=== PATIENT | female | born 1955 | race Caucasian/White ===

== ENCOUNTER 2020-06-12 16:36 | Emergency (ER) | payer BC ==
[2020-06-12] MEDS ORDERED: Sodium Chloride 0.9% 10 ML Syringe FLUSH PRN (17:18)
[2020-06-12] MEDS ORDERED: Ondansetron 4 MG/2 ML SDV IVPUSH ONE (17:20)
[2020-06-12] MEDS ORDERED: Lactated Ringers 1,000 ML IV SCH (17:30)
--- NOTE | 2020-06-12 17:48 | EDM.PDOC ---
ED HPI GENERAL MEDICAL PROBLEM - General Chief Complaint: Gastrointestinal Problem Stated Complaint: VOMITING Time Seen by Provider: 06/12/20 16:52 Source of Information: Reports: Patient History Limitations: Reports: No Limitations - History of Present Illness INITIAL COMMENTS - FREE TEXT/NARRATIVE: Patient is a 65-year-old female who presents to the emergency department with complaints of vomiting and intermittent abdominal pain for the last 5 days. Symptoms began around 2:00 last Monday with lower sternal chest pain that radiated down into her epigastrium. She states she took Tums which did help with the symptoms. On Monday, she developed 3 episodes of vomiting as well as continued epigastric pain. Symptoms have improved since that time, however have been present to a certain degree. States that she had one episode of emesis on Monday, did not vomit on Monday or Monday. Last night she had 1 emesis, and then again this morning she had 1 emesis. She has not eaten solid food since Monday. She has been drinking fluids well. She states that beginning with last night, her emesis has become dark brown to black in color. This morning she vomited around 9 AM and states it was dark black. She also vomited up 2 stones which she was able to capture and bring to the emergency department. Prior to coming to the ER, patient was seen at the [place] [facility]. Blood work was done and they attempted to do an ultrasound of her gallbladder, however the technology teacher was unable to visualize the gallbladder. The PA in the walk-in clinic consulted the surgeon on-call, Dr. Caro, and he recommended that she come to the ER to have a CT scan completed. She states that since her emesis this morning, her sternal and epigastric pain has resolved. She has had no further episodes of nausea or vomiting. She states that she did have a small bowel movement this morning which was normal in color. Denies any black stools. Patient does still have her gallbladder and her appendix. Pt verbalized that she has never had IV contrast but has a hx of a severe allergy to topical iodine. States she had to be hospitalized due to a reaction caused by topical iodine. Generalized Pain Score (Numeric/FACES): 7 - Related Data Allergies Allergy/AdvReac Type Severity Reaction Status Date / Time iodine Allergy Severe Rash Verified 06/12/20 16:56 Home Meds: Home Meds . [No Known Home Meds] 06/12/20 [History] Past Medical History HEENT History: Reports: Cataract Cardiovascular History: Reports: Hypertension - Past Surgical History HEENT Surgical History: Reports: Other (See Below) Other HEENT Surgeries/Procedures: partial lower dentures Musculoskeletal Surgical History: Reports: Other (See Below) Other Musculoskeletal Surgeries/Procedures:: bad knees Social & Family History - Tobacco Use Smoking Status *Q: Never Smoker - Caffeine Use Caffeine Use: Reports: Coffee, Tea - Recreational Drug Use Recreational Drug Use: No ED ROS GENERAL - Review of Systems Review Of Systems: See Below Constitutional: Reports: Decreased Appetite. Denies: Fever, Chills HEENT: Reports: No Symptoms Respiratory: Reports: No Symptoms. Denies: Shortness of Breath, Cough Cardiovascular: Reports: Chest Pain (Low sternal). Denies: Palpitations Endocrine: Reports: No Symptoms GI/Abdominal: Reports: Abdominal Pain, Nausea, Vomiting. Denies: Black Stool, Diarrhea, Melena : Reports: No Symptoms. Denies: Dysuria, Flank Pain Musculoskeletal: Reports: No Symptoms Skin: Reports: No Symptoms Neurological: Reports: No Symptoms. Denies: Confusion, Dizziness, Headache Psychiatric: Reports: No Symptoms Hematologic/Lymphatic: Reports: No Symptoms Immunologic: Reports: No Symptoms ED EXAM, GI/ABD - Physical Exam Exam: See Below Exam Limited By: No Limitations General Appearance: Alert, WD/WN, No Apparent Distress Respiratory/Chest: No Respiratory Distress, Lungs Clear, Normal Breath Sounds, No Accessory Muscle Use, Chest Non-Tender Cardiovascular: Normal Peripheral Pulses, Regular Rate, Rhythm, No Edema, No Gallop, No JVD, No Murmur, No Rub GI/Abdominal Exam: Normal Bowel Sounds, Soft, Non-Tender, No Organomegaly, No Distention, No Abnormal Bruit, No Mass, Pelvis Stable Neurological: Alert, Oriented, CN II-XII Intact, Normal Cognition, Normal Gait, Normal Reflexes, No Motor/Sensory Deficits Psychiatric: Normal Affect, Normal Mood Skin Exam: Warm, Dry, Intact, Normal Color, No Rash EKG INTERPRETATION EKG Date: 06/12/20 Time: 18:12 Rhythm: NSR Rate (Beats/Min): 94 [place]: Normal P-Wave: Present QRS: Normal ST-T: Normal QT: Prolonged (borderline) Comparison: NA - No Prior EKG Course - Vital Signs Last Recorded V/S: Last Vital Signs Temp 97.2 F 06/13/20 02:49 Pulse 98 06/13/20 02:49 Resp 16 06/13/20 02:49 BP 157/85 H 06/13/20 02:49 Pulse Ox 95 06/13/20 02:49 - Orders/Labs/Meds Labs: Laboratory Tests 06/12/20 06/12/20 06/12/20 Range/Units 18:10 18:10 18:10 WBC 13.14 H (3.98-10.04) K/mm3 RBC 5.33 H (3.98-5.22) M/mm3 Hgb 16.2 H (11.2-15.7) gm/dl Hct 48.4 H (34.1-44.9) % MCV 90.8 (79.4-94.8) fl MCH 30.4 (25.6-32.2) pg MCHC 33.5 (32.2-35.5) g/dl RDW Std Deviation 43.1 (36.4-46.3) fL Plt Count 225 (182-369) K/mm3 MPV 11.3 (9.4-12.3) fl Neut % (Auto) 70.9 (34.0-71.1) % Lymph % (Auto) 17.9 L (19.3-51.7) % [place] % (Auto) 10.2 (4.7-12.5) % Eos % (Auto) 0.5 L (0.7-5.8) Baso % (Auto) 0.2 (0.1-1.2) % Neut # (Auto) 9.32 H (1.56-6.13) K/mm3 Lymph # (Auto) 2.35 (1.18-3.74) K/mm3 [place] # (Auto) 1.34 H (0.24-0.36) K/mm3 Eos # (Auto) 0.07 (0.04-0.36) K/mm3 Baso # (Auto) 0.02 (0.01-0.08) K/mm3 Manual Slide Review Normal smear Sodium 137 (136-145) mEq/L Potassium 3.1 L (3.5-5.1) mEq/L Chloride 94 L (98-107) mEq/L Carbon Dioxide 33 H (21-32) mEq/L Anion Gap 13.1 (5-15) BUN 24 H (7-18) mg/dL Creatinine 1.2 H (0.55-1.02) mg/dL Est Cr Clr Drug Dosing 37.46 mL/min Estimated GFR (MDRD) 45 (>60) mL/min BUN/Creatinine Ratio 20.0 H (14-18) Glucose 108 (80-115) mg/dL Calcium 9.4 (8.5-10.1) mg/dL Total Bilirubin 0.9 (0.2-1.0) mg/dL AST 19 (15-37) U/L ALT 19 (14-59) U/L Alkaline Phosphatase 68 (46-116) U/L Troponin I < 0.017 (0.00-0.056) ng/mL C-Reactive Protein 10.2 H* (<1.0) mg/dL Total Protein 7.1 (6.4-8.2) g/dl Albumin 3.0 L (3.4-5.0) g/dl Globulin 4.1 gm/dL Albumin/Globulin Ratio 0.7 L (1-2) Amylase 62 (25-115) U/L Lipase 491 H (73-393) U/L Urine Color (Yellow) Urine Appearance (Clear) Urine pH (5.0-8.0) Ur Specific [place] (1.005-1.030) Urine Protein (Negative) Urine Glucose (UA) (Negative) Urine Ketones (Negative) Urine Occult Blood (Negative) Urine Nitrite (Negative) Urine Bilirubin (Negative) Urine Urobilinogen (0.2-1.0) Ur Leukocyte Esterase (Negative) COVID-19 (ORI) (NEGATIVE) 06/12/20 06/12/20 Range/Units 18:46 21:04 WBC (3.98-10.04) K/mm3 RBC (3.98-5.22) M/mm3 Hgb (11.2-15.7) gm/dl Hct (34.1-44.9) % MCV (79.4-94.8) fl MCH (25.6-32.2) pg MCHC (32.2-35.5) g/dl RDW Std Deviation (36.4-46.3) fL Plt Count (182-369) K/mm3 MPV (9.4-12.3) fl Neut % (Auto) (34.0-71.1) % Lymph % (Auto) (19.3-51.7) % [place] % (Auto) (4.7-12.5) % Eos % (Auto) (0.7-5.8) Baso % (Auto) (0.1-1.2) % Neut # (Auto) (1.56-6.13) K/mm3 Lymph # (Auto) (1.18-3.74) K/mm3 [place] # (Auto) (0.24-0.36) K/mm3 Eos # (Auto) (0.04-0.36) K/mm3 Baso # (Auto) (0.01-0.08) K/mm3 Manual Slide Review Sodium (136-145) mEq/L Potassium (3.5-5.1) mEq/L Chloride (98-107) mEq/L Carbon Dioxide (21-32) mEq/L Anion Gap (5-15) BUN (7-18) mg/dL Creatinine (0.55-1.02) mg/dL Est Cr Clr Drug Dosing mL/min Estimated GFR (MDRD) (>60) mL/min BUN/Creatinine Ratio (14-18) Glucose (80-115) mg/dL Calcium (8.5-10.1) mg/dL Total Bilirubin (0.2-1.0) mg/dL AST (15-37) U/L ALT (14-59) U/L Alkaline Phosphatase (46-116) U/L Troponin I (0.00-0.056) ng/mL C-Reactive Protein (<1.0) mg/dL Total Protein (6.4-8.2) g/dl Albumin (3.4-5.0) g/dl Globulin gm/dL Albumin/Globulin Ratio (1-2) Amylase (25-115) U/L Lipase (73-393) U/L Urine Color Yellow (Yellow) Urine Appearance Clear (Clear) Urine pH 6.0 (5.0-8.0) Ur Specific [place] > or = 1.030 (1.005-1.030) Urine Protein Negative (Negative) Urine Glucose (UA) Negative (Negative) Urine Ketones 2+ H (Negative) Urine Occult Blood Negative (Negative) Urine Nitrite Negative (Negative) Urine Bilirubin 1+ H (Negative) Urine Urobilinogen 1.0 (0.2-1.0) Ur Leukocyte Esterase Negative (Negative) COVID-19 (ORI) Negative (NEGATIVE) Meds: Medications Discontinued Medications Generic Name Dose Route Start Last Admin Trade Name Freq PRN Reason Stop Dose Admin Diatrizoate Meglum/Diatrizoate Sod 120 ml 06/12/20 19:22 06/12/20 20:02 Gastrografin 37% PO 06/12/20 19:23 120 ml ONETIME ONE Administration Diphenhydramine HCl 50 mg 06/12/20 17:51 06/12/20 18:39 Benadryl IVPUSH 06/12/20 17:52 Not Given ONETIME ONE Lactated Ringer's 1,000 mls @ 999 mls/hr 06/12/20 17:30 06/12/20 18:44 Ringers, Lactated IV 999 mls/hr ASDIRECTED NIKKI Administration Potassium Chloride 10 meq/ 100 mls @ 100 mls/hr 06/12/20 21:15 06/13/20 02:24 Premix IV 06/15/20 22:14 100 mls/hr ASDIRECTED NIKKI Administration Sodium Chloride 1,000 mls @ 75 mls/hr 06/12/20 21:15 06/12/20 21:21 Normal Saline IV 75 mls/hr ASDIRECTED NIKKI Administration Ceftriaxone Sodium 2 gm/ 100 mls @ 200 mls/hr 06/12/20 21:45 06/12/20 21:57 Sodium Chloride IV 200 mls/hr Q24H NIKKI Administration Metronidazole 500 mg/ Premix 100 mls @ 100 mls/hr 06/12/20 21:33 06/12/20 21:54 IV 06/12/20 22:32 100 mls/hr ONETIME ONE Administration Lorazepam 0.5 mg 06/12/20 21:59 06/12/20 22:09 Ativan IVPUSH 06/12/20 22:00 0.5 mg ONETIME ONE Administration Ondansetron HCl 4 mg 06/12/20 17:20 06/12/20 18:44 Zofran IVPUSH 06/12/20 17:21 4 mg ONETIME ONE Administration Ondansetron HCl 4 mg 06/13/20 04:46 06/13/20 04:51 Zofran IVPUSH 06/13/20 04:47 4 mg ONETIME ONE Administration Sodium Chloride 10 ml 06/12/20 17:18 06/12/20 18:44 Saline Flush FLUSH 10 ml ASDIRECTED PRN Administration Keep Vein Open - Re-Assessments/Exams Free Text/Narrative Re-Assessment/Exam: Patient is a 65-year-old female who presents with complaints of a one-week history of abdominal pain with intermittent vomiting. She was seen at the [place] walk[facility]in [facility] prior to coming the ER. They attempted to do an ultrasound of her gallbladder, however were unable to locate the gallbladder. Lab work was completed at [place] as well. She states she is feeling much better at this time. She has not vomited since 9:00 this morning and the pain has resolved for the most part. We will repeat lab work including a CBC, CMP, CRP, lipase, amylase, troponin, urinalysis. Ordered a CT scan of the abdomen and pelvis with oral contrast only. Patient states that she had a severe reaction to topical iodine which required hospitalization, therefore we are going to avoid IV contrast at this time. 06/12/202114 Hematology was significant for WBC elevated at 13.14, hemoglobin 16.2, potassium 3.1, chloride 94, CO2 33, BUN 24, creatinine 1.2, CRP 10.2, lipase 491. Urinalysis was negative. I have ordered KCl 10 mEq IV x4 bags as well as NS at 100 mils per hour. 06/12/20 22:00 CT scan of the abdomen pelvis results as follows 1. Dilated small bowel loops with transition point within the right lower abdomen which is most likely due to adhesions. Slight areas of increased mesenteric densities are also noted in this area. 2. Free fluid within the pelvis most likely relating to small bowel obstruction as reactive fluid. 3. Intrahepatic and extrahepatic biliary air most likely related to previous cholecystectomy and possible intervention of the sphincter of Oddi. 4. No other acute abnormalities is appreciated. Verified with patient that she has never had a cholecystectomy. Called and spoke with the surgeon on-call, Dr. Caro. He feels the patient may have a gallstone ileus, however due to her BMI of 55 she would not be a surgical candidate for [place]. He recommended that I contact [place] to discuss transfer. Called [facility] in [place] and spoke with the on-call surgeon, Dr. Calzada. After review of the case, he is concerned that she could have an intrahepatic gallbladder which would require a liver specialist and not be a procedure that they would build to complete at their facility. He recommended I contact [facility] is there a level 1 trauma center and have specialist available. Called [facility] and spoke with Dr. Flores. She reviewed the CT images and is concerned that the patient could have a fistula from her gallbladder to her duodenum. She has accepted the patient for transfer to [facility]. Recommend the patient remain n.p.o. She also recommended that we give a dose of Rocephin and Flagyl prior to transfer. Patient will go by [facility] [employer] fixed wing pending weather clearance. 06/12/20 22:56 [facility] [employer] updated that they are unable to fly at this time due to weather in [place]. They are estimating it may be up to an additional 2 to 3 hours. Patient remains hemodynamically stable. She is resting comfortably. Case discussed with Dr. Donis MD. He will assume care and disposition of patient due to end of shift. Departure - Departure Time of Disposition: 22:56 Disposition: DC/Tfer to Acute Hospital 02 Condition: Good Clinical Impression: Abdominal pain - Discharge Information Referrals: PCP,None [Primary Care Provider] - Forms: ED Department Discharge Sepsis Event Note (ED) - Evaluation Sepsis Screening Result: No Definite Risk
[2020-06-12] MEDS ORDERED: diphenhydrAMINE 50 MG/ML SDV IVPUSH ONE (17:51)
--- NOTE | 2020-06-12 18:13 | CR ---
Chest: 2 views of the chest were obtained. Comparison: No previous chest imaging. Minimal atelectasis is noted within the left lung base. Heart size is normal. Tortuous thoracic aorta is seen. Slight degenerative change is noted within the spine. Impression: 1. Slight atelectasis within the left base. 2. Nothing acute is appreciated. Diagnostic code #2 This report was dictated in MDT
[2020-06-12] MEDS ORDERED: Diatrizoate Meglumine/Diatrizoate Sodium 37% 120 ML Bottle PO ONE (19:22)
--- NOTE | 2020-06-12 20:30 | CT ---
CT abdomen and pelvis Technique: Multiple axial sections were obtained from above the dome of the diaphragm inferiorly through the pubic symphysis. Intravenous contrast not utilized. Oral contrast has been given. Findings: Intrahepatic biliary air is noted as well as extrahepatic biliary air. Visualized lung bases show nothing acute. No focal abnormality is appreciated within the liver. Several small low density finding seen within the spleen which which I believe are incidental. Adrenal glands show no nodule. Kidneys show no hydronephrosis or abnormal calcifications. Dilated jejunal and proximal ileal loops are noted. Transition point appears to be within the right lower abdomen with mild increase adjacent mesenteric densities. Findings are most likely due to adhesions. No other etiology is appreciated for the obstruction. Small amount of fluid is seen within the pelvis most likely reactive from the small bowel obstruction. No pelvic mass or adenopathy is seen. Appendix is not visualized. Aorta shows no aneurysm. No retroperitoneal adenopathy is seen. Bone window settings were reviewed which shows scattered degenerative change within the spine. Very minimal umbilical hernia is noted. Impression: 1. Dilated small bowel loops with transition point within the right lower abdomen which is most likely due to adhesions. Slight areas of increased mesenteric density are noted in this area. 2. Free fluid within the pelvis most likely relating to the small bowel obstruction as reactive fluid. 3. Intrahepatic and extrahepatic biliary air most likely relating to previous cholecystectomy and possible intervention of the sphincter of Oddi. 4. No other acute abnormality is appreciated. Diagnostic code #5 This report was dictated in MDT
[2020-06-12] MEDS ORDERED: Sodium Chloride 0.9% 1,000 ML IV SCH (21:15)
[2020-06-12] MEDS: Potassium Chloride 10 MEQ in Premix Bag 1 BAG IV SCH ×3 (21:22→23:59)
[2020-06-12] MEDS ORDERED: metroNIDAZOLE/Normal Saline 500 MG in Premix Bag 1 BAG IV ONE (21:33)
[2020-06-12] MEDS ORDERED: cefTRIAXone 2 GM in Sodium Chloride 0.9% 100 ML IV SCH (21:45)
[2020-06-12] MEDS ORDERED: LORazepam 2 MG/ML SDV IVPUSH ONE (21:59)
[2020-06-13] MEDS: Potassium Chloride 10 MEQ in Premix Bag 1 BAG IV SCH (02:24)
[2020-06-13] MEDS ORDERED: Ondansetron 4 MG/2 ML SDV IVPUSH ONE (04:46)
== END 2020-06-13 05:06 ==
LOC: JD.ED 16:36
DX: R10.13 Epigastric pain (principal); I10 Essential (primary) hypertension; Z88.8 Allergy status to other drugs, medicaments and biological substances; Z20.828 Contact with and (suspected) exposure to other viral communicable diseases
CPT/HCPCS: 36415; 71046; 74176; 80053; 81003; 82150; 83690; 84484; 85025; 86140; 87635; 93005; 94762; 96361; 96365; 96366; 96367; 96368; 96375; 96376; 99285; J0696; J2060; J2405; J3480; J3490; J7030; J7050; J7120; Q9963; 93010; U0002

== ENCOUNTER 2025-10-09 13:03 | Day surgery (SDC) | payer MEDICARE, BC ==
[~2025-10-09 13:03] MED LIST: Pilocarpine 4% Ophth Soln 15 ML Bot EYERT SCH
[2025-10-09] MEDS: Polymyxin B/Trimethoprim 10 ML Bottle EYERT SCH (13:10)
[2025-10-09] MEDS: Tropicamide 1% Ophth Soln 3 ML Bottle EYERT SCH (13:32)
[2025-10-09] MEDS: Tetracaine HCl/PF 0.5% 4 ML Bottle EYEBOTH SCH (14:26)
[2025-10-09] MEDS: Lidocaine 1% PF 2 ML SDV INJECT SCH (14:44)
[2025-10-09] MEDS: Cefuroxime 10 MG/ML SYRINGE EYERT SCH (14:54)
== END 2025-10-09 15:10 | disposition home or self-care (01) ==
LOC: JD.SDS 13:03
PROVIDERS: ATTEND Ophthalmology
DX: H26.9 Unspecified cataract (principal); I10 Essential (primary) hypertension; Z91.041 Radiographic dye allergy status; Z79.899 Other long term (current) drug therapy
CPT/HCPCS: A9270-GY; J0697; J3490